=== PATIENT | male | born 1945 | race Caucasian/White ===

== ENCOUNTER 2019-07-18 14:25 | Emergency (ER) | payer MEDICARE, OTHER ==
[2019-07-18] MEDS ORDERED: SODIUM CHLORIDE 0.9% 1000ML 1,000 ML IV ONE (15:35)
[2019-07-18] MEDS ORDERED: SODIUM CHLORIDE 0.9% 250 ML IV ONE ×2 (15:35→16:45)
[2019-07-18 15:47] LABS: BASOPHILS % (AUTO) 0.4 % (0.0-5.0); EOSINOPHILS % (AUTO) 0.2 % (0.0-8.0); HEMATOCRIT 43.7 % (42-54); LYMPHOCYTES % (AUTO) 18.1 % (21.0-51.0); MEAN CORPUSCULAR HEMOGLOBIN 31.8 pg (27.0-33.0); MEAN CORPUSCULAR HGB CONC 34.3 g/dL (32.0-36.0); MEAN CORPUSCULAR VOLUME 92.6 fL (79-99); MONOCYTES % (AUTO) 7.8 % (3.0-13.0); NEUTROPHILS % (AUTO) 73.2 % (40.0-77.0); PLATELET COUNT (AUTO) 215 K/uL (130-400); RED BLOOD CELL COUNT(AUTO) 4.72 MIL/uL (4.50-6.20); WHITE BLOOD COUNT (AUTO) 16.6 K/uL (4.8-10.8)
[2019-07-18 15:59] LABS: CREATININE 2.3 mg/dL (0.5-1.5); POTASSIUM 4.7 mmol/L (3.5-5.1)
[2019-07-18 16:03] LABS: BILIRUBIN,TOTAL 1.1 mg/dL (0.2-1.0)
[2019-07-18 17:41] LABS: APPEARANCE,URINE Clear (CLEAR); BILIRUBIN,URINE Negative (NEGATIVE); COLOR,URINE Dark Yellow (YELLOW); GLUCOSE, URINE (UA) Negative (NEGATIVE); KETONES,URINE Negative (NEGATIVE); LEUKOCYTE ESTERASE ,URINE Trace (NEGATIVE); NITRATE,URINE Negative (NEGATIVE); OCCULT BLOOD,URINE Moderate (NEGATIVE); PROTEIN,URINE POS 1+ mg/dL (NEGATIVE); UROBILINOGEN,URINE 0.2 mg/dL (0.2-1.0)
[2019-07-18 18:05] LABS: BACTERIA,URINE Moderate /HPF (None Seen); SQUAMOUS EPITHELIAL CELL,UR 0-2 /HPF (0-2); TRANSITIONAL EPI CELLS,URINE Few /HPF (None Seen)
== END 2019-07-18 18:59 | disposition home or self-care (01) ==
LOC: EDH 14:25
DX: S80.12XA Contusion of left lower leg, initial encounter (principal); D72.829 Elevated white blood cell count, unspecified; I10 Essential (primary) hypertension; E78.00 Pure hypercholesterolemia, unspecified; E11.40 Type 2 diabetes mellitus with diabetic neuropathy, unspecified; Z87.891 Personal history of nicotine dependence; Z88.0 Allergy status to penicillin; W18.39XA Other fall on same level, initial encounter; Y93.89 Activity, other specified; Y92.89 Other specified places as the place of occurrence of the external cause; Y99.8 Other external cause status
CPT/HCPCS: 36415; 71045; 80053; 81001; 85025; 87088; 93005; 99285; J7030 ×3

== ENCOUNTER 2019-08-03 08:30 | Day surgery (SDC) | payer OTHER ==
[2019-07-30 13:06] VITALS: BP 155/87
[~2019-08-03] VITALS: Ht 190.5 cm; Wt 108.0 kg
[2019-08-03] VITALS (17 sets, daily range): BP systolic 112–137; BP diastolic 64–83
[~2019-08-03 08:30] MED LIST: CEFAZOLIN SODIUM 1 GM VIAL IVP SCH
[2019-08-03] MEDS ORDERED: LACTATED RINGERS 1000ML 1,000 ML IV ONE (08:54)
[2019-08-03] MEDS ORDERED: LIDOCAINE PF 2% 5ML ABBOJECT ONE (09:03)
[2019-08-03] MEDS ORDERED: PROPOFOL 10 MG/ML 20ML VIAL IV ONE (09:03)
[2019-08-03] MEDS ORDERED: CEFAZOLIN SODIUM 1 GM VIAL ONE (09:11)
[2019-08-03] MEDS ORDERED: SODIUM CHLORIDE 0.9% 10 ML VIAL ONE (09:12)
[2019-08-03] MEDS ORDERED: ROPIVACAINE 0.5% 5MG/ML 30ML IJ ONE (09:14)
[2019-08-03] MEDS ORDERED: METO100T14 PO (10:02)
[2019-08-03] MEDS ORDERED: METF-444 PO (10:04)
[2019-08-03] MEDS ORDERED: CHLO25TA3 PO (10:05)
[2019-08-03] MEDS ORDERED: ATOR10 PO (10:06)
[2019-08-03] MEDS ORDERED: LISI40TA4 PO (10:07)
[2019-08-03] MEDS ORDERED: GABA-531 PO (10:08)
[2019-08-03] MEDS ORDERED: BUDE10.22 IH (10:09)
[2019-08-03] MEDS ORDERED: FENTANYL CITRATE PF 50 MCG/1 ML 2ML VIAL ONE (10:36)
[2019-08-03] MEDS ORDERED: EPHEDRINE SULFATE 50 MG/ML AMPULE ONE (11:08)
[2019-08-03] MEDS ORDERED: ONDANSETRON HCL 4 MG/2 ML VIAL ONE (11:38)
[2019-08-03] MEDS ORDERED: CEPH500B PO (13:20)
[2019-08-03] MEDS ORDERED: ACET1TAB12 PO (13:20)
--- NOTE | 2019-08-03 14:25 | NUR ---
DISCHARGE PT DISCHARGED VIA WHEELCHAIR WITH , PT STABLE, NO COMPLAINTS MADE. LEFT ARM IN SLING. DRESSING LEFT ARM DRY AND INTACT, NO OOZING NOTED, SENSATION INTACT, ABLE TO MOVE HANDS AND FINGERS. DISCHARGE INSTRUCTIONS GIVEN TO AND PT, VERBALIZED UNDERSTANDING.
== END 2019-08-03 14:25 | disposition home or self-care (01) ==
LOC: DAH 08:30
PROVIDERS: ATTEND Orthopaedic Surgery
DX: M70.22 Olecranon bursitis, left elbow (principal); I10 Essential (primary) hypertension; E78.5 Hyperlipidemia, unspecified; E11.9 Type 2 diabetes mellitus without complications; J44.9 Chronic obstructive pulmonary disease, unspecified; Z88.1 Allergy status to other antibiotic agents; Z90.49 Acquired absence of other specified parts of digestive tract; Z79.899 Other long term (current) drug therapy; Z98.890 Other specified postprocedural states; Z79.84 Long term (current) use of oral hypoglycemic drugs; Z87.891 Personal history of nicotine dependence; Z72.89 Other problems related to lifestyle
CPT/HCPCS: 24105; 64415; 76942; 82948 ×2; 88304; A4215; A4221; A4222; A4223; A4565; A4649; A4663; A4930; A5120; A6223; A6260; J0690 ×2; J2001; J2405; J2704; J2795; J3010; J3490; J7120; Q4051

== ENCOUNTER → 2022-08-28 | Outpatient (CLI) | payer OTHER ==
[~2022-08-28] MED LIST changes: +ACET1TAB12 PO; +ATOR10 PO; +BUDE10.22 IH; -CEFAZOLIN SODIUM 1 GM VIAL IVP SCH; +CEPH500B PO; +CHLO25TA3 PO; +GABA-531 PO; +LISI40TA9 PO; +METF-444 PO; +METO100T14 PO
== END | disposition home or self-care (01) ==
LOC: SHCH 15:03
PROVIDERS: ATTEND Internal Medicine Cardiovascular Disease
DX: G45.1 Carotid artery syndrome (hemispheric) (principal); I70.8 Atherosclerosis of other arteries
CPT/HCPCS: 93880

== ENCOUNTER → 2023-06-06 | Outpatient (CLI) | payer OTHER | END | disposition home or self-care (01) | LOC: RAH 12:25 | PROVIDERS: ATTEND Nurse Practitioner Family | DX: R13.10 Dysphagia, unspecified (principal) | CPT/HCPCS: 74230; 92611 ==

== ENCOUNTER → 2023-07-24 | Outpatient (CLI) | payer OTHER | END | disposition home or self-care (01) | LOC: RAH 12:51 | PROVIDERS: ATTEND Internal Medicine Pulmonary Disease | DX: J98.11 Atelectasis (principal); J84.10 Pulmonary fibrosis, unspecified; J44.9 Chronic obstructive pulmonary disease, unspecified; M47.815 Spondylosis without myelopathy or radiculopathy, thoracolumbar region; I70.90 Unspecified atherosclerosis; M47.812 Spondylosis without myelopathy or radiculopathy, cervical region; Q32.0 Congenital tracheomalacia; M48.02 Spinal stenosis, cervical region; K80.20 Calculus of gallbladder without cholecystitis without obstruction | CPT/HCPCS: 70490; 71250 ==

== ENCOUNTER → 2023-08-15 | Outpatient (CLI) | payer OTHER | END | disposition home or self-care (01) | LOC: SHCH 12:38 | PROVIDERS: ATTEND Internal Medicine Cardiovascular Disease | DX: I65.23 Occlusion and stenosis of bilateral carotid arteries (principal) | CPT/HCPCS: 93880 ==